=== PATIENT | female | born 2005 | race Two or more races ===

== ENCOUNTER 2024-09-30 02:49 | Emergency (ER) | payer OTHER ==
[~2024-09-30] VITALS: Ht 162.6 cm; Wt 68.0 kg
[2024-09-30 03:10] VITALS: BP 104/73; O2SAT 100
[2024-09-30] MEDS ORDERED: HYOSCYAMINE SULFATE 0.125 MG TAB.SUBL SL STA (03:19)
[2024-09-30] MEDS ORDERED: PROMETHAZINE HCL 50 MG/ML AMPUL IM STA (03:19)
[2024-09-30] MEDS ORDERED: FAMOTIDINE/PF 20 MG/2 ML VIAL IV PUSH STA (03:20)
[2024-09-30] MEDS ORDERED: LACTOBACILLUS ACIDOPHILUS 1 CAP CAP PO STA (03:20)
[2024-09-30] MEDS ORDERED: 0.9 % SODIUM CHLORIDE 1,000 ML IV ONE (03:30)
[2024-09-30] MEDS ORDERED: HYOSCYAMINE SULFATE 0.125 MG TAB.SUBL ONE (03:48)
[2024-09-30] MEDS ORDERED: LACTOBACILLUS ACIDOPHILUS 1 CAP CAP PO ONE (03:48)
[2024-09-30] MEDS ORDERED: FAMOTIDINE/PF 20 MG/2 ML VIAL ONE (03:48)
[2024-09-30] MEDS ORDERED: PROMETHAZINE HCL 50 MG/ML AMPUL IM ONE (03:48)
[2024-09-30 04:02] LABS: BASO % 0.1 % (0.1-1.2); EOS # 0.00 (0.04-0.54); EOS % 0.0 % (0.7-7.0); LYMPH # 0.32 (1.18-3.74); LYMPH % 3.1 % (19.3-53.1); MEAN PLATELET VOLUME 10.60 fl (9.4-12.4); MONO # 0.22 (0.24-0.82); MONO % 2.2 % (4.7-12.5); NEUT # 9.61 (1.56-6.13); NEUT % 94.3 % (34.0-71.1); RED CELL DISTRIBUTION WIDTH 12.2 % (11.6-14.4)
[2024-09-30 04:11] LABS: BUN CREA RATIO 17.0 (7.0-25.0); CREATININE SERUM 0.87 mg/dL (0.55-1.02); GFR 83.01; GLUCOSE FASTING 117.0 mg/dL (65-100); OSMOLALITY SERUM 281.0 MOSM/KG (275-295)
[2024-09-30 05:48] LABS: URINE APPEARANCE Clear; URINE BILIRRUBIN Small (NEGATIVE); URINE BLOOD Negative; URINE COLOR Dark Yellow; URINE GLUCOSE Negative (NEGATIVE); URINE LEUKOCYTE Trace; URINE NITRATE Negative; URINE PROTEIN 30 (NEGATIVE); URINE UROBILINOGEN 1.0 E.U./dl
[2024-09-30 05:52] LABS: URINE BACTERIA 1666.7 uL (0.0-1933); URINE CAST 2.34 uL (0.0-1.40); URINE EPITHELIAL CELLS 45.9 uL (0.0-38.8); URINE RBC 2.4 uL (0.0-20.8); URINE WBC 17.6 uL (0.0-23.2)
[2024-09-30 06:20] LABS: URINE KETONE 80 (NEGATIVE)
[2024-09-30 06:21] LABS: URINE MUCUS HEAVY
[2024-09-30] MEDS ORDERED: CIPROFLOXACIN IN 5 % DEXTROSE 400 MG/200 ML PIGGYBAG IV STA (06:46)
[2024-09-30] MEDS ORDERED: CIPROFLOXACIN IN 5 % DEXTROSE 400 MG/200 ML PIGGYBAG IV ONE (06:46)
[2024-09-30] MEDS ORDERED: ZOFRAN8 MG PO (07:50)
[2024-09-30] MEDS ORDERED: CIPRO500 MG PO (07:50)
[2024-09-30] MEDS ORDERED: PEPCID40 MG PO (07:50)
[2024-09-30] MEDS ORDERED: INTESTINEX680 M2 PO (07:50)
== END 2024-09-30 10:15 ==
LOC: ER 03:49
PROVIDERS: General Practice
DX: R11.10 Vomiting, unspecified (principal); R19.7 Diarrhea, unspecified